=== PATIENT | female | born 1990 | race African-American/Black ===

== ENCOUNTER 2017-02-10 09:55 | Emergency (ER) | payer SELFPAY ==
[2017-02-10 09:33] LABS: URINE SOURCE CLEAN CATCH
[2017-02-10 09:46] LABS: URINE APPEARANCE CLOUDY; URINE BILIRUBIN NEG (NEG); URINE BLOOD NEG (NEG); URINE COLOR YELLOW; URINE GLUCOSE NEG (NEG); URINE KETONE NEG (NEG); URINE LEUKOCYTE ESTERASE NEG (NEG); URINE NITRATE NEG (NEG); URINE PROTEIN NEG (NEG); URINE SPECIFIC GRAVITY 1.027 (1.003-1.035); URINE UROBILINOGEN 0.2 MG/DL (NEG)
[~2017-02-10 09:55] MED LIST: ALBUTEROL 0.5ML INH; BACLOFEN10 MG PO; BAYER ASPIRIN325 M1 PO; CELEXA20 MG PO; ENALAPRIL MALEA20 MG PO; FLAGYL PO; FLOVENT DISKU100 MCG IH; FUROSEMIDE40 MG PO; HUMALOG100 U/M2 SUBQ; HYDROCHLOROTHIA25 MG PO; HYDROCODON-ACE1 EAC7 PO; LEVEMIR SUBQ; METOPROLOL SUCC50 MG PO; MOTRIN600 M2 PO; PENICILLIN V P500 MG PO; PHENERGAN25 M1 PO; PROTONIX PO; SIMVASTATIN80 MG PO; SINGULAIR PO; SPIRIVA18 MCG INH; TRADJENTA5 MG PO
[2017-02-10 09:56] LABS: CULTURE INDICATED? NO
[2017-02-12 02:17] LABS: CHLAMYDIA TRACH Not Detected (Not Detected); N GONOR Not Detected (Not Detected)
== END 2017-02-10 10:40 | disposition home or self-care (01) ==
LOC: CFTX 09:55
PROVIDERS: Physician Assistant
DX: N89.8 Other specified noninflammatory disorders of vagina (principal); F17.210 Nicotine dependence, cigarettes, uncomplicated; Z79.2 Long term (current) use of antibiotics; Z79.891 Long term (current) use of opiate analgesic; Z79.1 Long term (current) use of non-steroidal anti-inflammatories (NSAID)
CPT/HCPCS: 81003; 84703; 87491; 87591; 87808; 87905; 99284